=== PATIENT | male | born 1965 | race Caucasian/White ===

== ENCOUNTER → 2018-01-12 13:04 | Outpatient (CLI) | payer BC, SELFPAY ==
--- NOTE | 2018-01-12 13:19 | MRI_ITS ---
STUDY: MRI LEFT SHOULDER REASON FOR EXAM: Left shoulder pain for 6 months, injury. TECHNIQUE: Standardized fat and water weighted pulse sequences were obtained in all 3 orthogonal planes. COMPARISON: None. FINDINGS: There is mild supraspinatus tendinosis (T2 coronal images 8-10) without discrete tendon tear. Normal infraspinatus tendon. Normal subscapularis tendon. Normal teres minor tendon. Normal supraspinatus muscle. Normal infraspinatus muscle. Normal subscapularis muscle. Normal teres minor muscle. Normal glenohumeral articulation. Normal humeral head and visualized proximal humerus. Normal biceps labral complex. Normal intracapsular long biceps tendon. There is a small volume of fluid in the bicipital tendon sheath (proton density axial images 14-18). Normal labrum. Normal capsulo- ligamentous complex. There is mild acromioclavicular arthrosis without substantial undersurface osteophytes (T2 sagittal image 5). There is a Type II morphology (curved), with a neutral orientation. There is a very small volume of subacromial-subdeltoid bursal fluid (proton-density axial images 10-12). Normal visualized coracohumeral and coracoacromial ligaments. Normal deltoid muscle. Normal trapezius muscle. MRI/Upper Ext Joint Only(Routine) IMPRESSION: Mild supraspinatus tendinosis without demonstrated rotator cuff tear. Mild bicipital tenosynovitis. Mild acromioclavicular arthrosis. Very mild subacromial-subdeltoid bursitis. Electronically Signed: Philip Porras MD at 14:31 EST Tel , Service support ,
== END ==
DX: M25.512 Pain in left shoulder (principal)
CPT/HCPCS: 73221

== ENCOUNTER → 2020-02-03 07:14 | Outpatient (CLI) | payer OTHER, SELFPAY ==
[2020-02-03 10:23] LABS: Anion Gap 7 (5-15); BUN 14 mg/dL (7-18); BUN/Creat Ratio 11.7 RATIO (10-20); Calcium,Total 8.7 mg/dL (8.5-10.1); Chloride 104 mmol/L (98-107); EST Glomerular Filtration Rate 66 mL/min (>60); Est Glom Filt Rate - Afr Amer 80 mL/min (>60); Glucose 88 mg/dL (74-106); Potassium 3.9 mmol/L (3.5-5.1); Sodium Level 139 mmol/L (136-145)
== END ==
DX: I10 Essential (primary) hypertension (principal)
CPT/HCPCS: 36415; 80048

== ENCOUNTER → 2020-05-02 07:16 | Outpatient (CLI) | payer OTHER, SELFPAY ==
[2020-05-02 10:25] LABS: Absolute Lymphocyte Count 1.69 X10^3/uL (0.83-4.51); Absolute Neutrophil Count 3.3 X10^3/uL (2.0-7.7); Basophil# 0.06 X10^3/uL; Eosinophils% 3.5 % (0-5); Hematocrit 47.3 % (40-54); Hemoglobin 15.5 g/dL (13.0-16.5); Lymphocyte # 1.69 X10^3/ul (4.0); Lymphocyte % 29.2 % (19-41); Mean Corp Hgb Conc 32.8 g/dL (32-36); Mean Corpuscular Hgb 29.5 pg (27.0-32.0); Mean Corpuscular Volume 90.1 fL (80-94); Mean Platelet Vol. 10.4 fl (6.2-12.0); Monocyte# 0.51 X10^3/uL; Monocyte% 8.8 % (0-10); NRBC Flagged by Analyzer 0 % (0-5); Neutrophil # 3.32 X10^3/uL (2.7-7.7); Neutrophil % 57.3 % (47-70); Platelet Count 213 K/mm3 (150-450); RBC Distribution Width CV 13.2 % (11.6-14.6); RBC Distribution Width SD 43.3 fl (35.1-43.9); Red Blood Count 5.25 M/mm3 (4.6-6.2); White Blood Count 5.8 K/mm3 (4.4-11.0)
[2020-05-02 10:36] LABS: Color, Urine Yellow (Yellow); Glucose, Dipstick Normal (Normal); Ketone-Dipstick Negative (Negative); Leukocyte Esterase-Dipstick Negative /ul (Negative); Nitrite-Dipstick Negative (Negative); Occult Blood-Urine Negative /ul (Negative); Protein-Dipstick Negative (Negative); Specific Gravity, Urine 1.025 (1.002-1.030); Urine Bilirubin Dipstick Negative (Negative); Urine Clarity Clear (Clear); Urine Urobilinogen Normal (Normal)
[2020-05-02 10:40] LABS: ALB/GLOB Ratio 0.9 RATIO (0.9-2.4); AST(SGOT) 17 U/L (15-37); Alanine Aminotransfer ALT/SGPT 28 U/L (16-61); Albumin, Serum 3.4 g/dL (3.2-5.0); Alkaline Phosphatase 85 U/L (45-117); Anion Gap 7 (5-15); BUN 19 mg/dL (7-18); BUN/Creat Ratio 16.5 RATIO (10-20); Calcium,Total 8.6 mg/dL (8.5-10.1); Chloride 109 mmol/L (98-107); Cholesterol 201 mg/dL (200); Creatinine, Serum 1.15 mg/dL (0.70-1.30); EST Glomerular Filtration Rate 70 mL/min (>60); Est Glom Filt Rate - Afr Amer 84 mL/min (>60); Globulin 3.8 g/dL (2.2-4.2); Glucose 101 mg/dL (74-106); High Density Lipoprotein 26 mg/dL; PSA,Total - Annual Screen 0.43 ng/mL (0.00-4.00); Potassium 4.1 mmol/L (3.5-5.1); Protein, Total 7.2 g/dL (6.4-8.2); Sodium Level 143 mmol/L (136-145); Triglycerides 275 mg/dL; Very Low Density Lipoprotein 55 mg/dL (5-40)
== END ==
PROVIDERS: Referring Provider Family Medicine; Visit Provider Family Medicine
DX: Z00.00 Encounter for general adult medical examination without abnormal findings (principal); I10 Essential (primary) hypertension; E78.00 Pure hypercholesterolemia, unspecified; D50.9 Iron deficiency anemia, unspecified; Z12.5 Encounter for screening for malignant neoplasm of prostate
CPT/HCPCS: 36415; 80053; 80061; 81002; 84153; 85025; G0103

== ENCOUNTER → 2022-04-25 | Outpatient (CLI) | payer BC, SELFPAY ==
[2022-04-25 10:08] LABS: Absolute Lymphocyte Count 1.35 X10^3/uL (0.83-4.51); Absolute Neutrophil Count 4.4 X10^3/uL (2.0-7.7); Basophil# 0.07 X10^3/uL; Eosinophil# 0.14 X10^3/uL; Eosinophils% 2.1 % (0-5); Hematocrit 47.7 % (40-54); Hemoglobin 15.8 g/dL (13.0-16.5); Lymphocyte # 1.35 X10^3/ul (0.83-4.51); Lymphocyte % 20.1 % (19-41); Mean Corp Hgb Conc 33.1 g/dL (32-36); Mean Corpuscular Hgb 28.7 pg (27.0-32.0); Mean Corpuscular Volume 86.7 fL (80-94); Mean Platelet Vol. 10.3 fl (6.2-12.0); Monocyte# 0.69 X10^3/uL; Monocyte% 10.3 % (0-10); NRBC Flagged by Analyzer 0 % (0-5); Neutrophil # 4.43 X10^3/uL (2.7-7.7); Neutrophil % 66.2 % (47-70); Platelet Count 188 K/mm3 (150-450); RBC Distribution Width CV 13.3 % (11.6-14.6); RBC Distribution Width SD 41.9 fl (35.1-43.9); White Blood Count 6.7 K/mm3 (4.4-11.0)
[2022-04-25 10:34] LABS: ALB/GLOB Ratio 0.9 RATIO (0.9-2.4); AST(SGOT) 15 U/L (15-37); Alanine Aminotransfer ALT/SGPT 25 U/L (16-61); Albumin, Serum 3.4 g/dL (3.2-5.0); Alkaline Phosphatase 91 U/L (45-117); Anion Gap 6 (5-15); BUN 16 mg/dL (7-18); BUN/Creat Ratio 14.2 RATIO (10-20); Calcium,Total 8.4 mg/dL (8.5-10.1); Chloride 106 mmol/L (98-107); Cholesterol 182 mg/dL (200); Creatinine, Serum 1.13 mg/dL (0.70-1.30); EST Glomerular Filtration Rate 71 mL/min (>60); Est Glom Filt Rate - Afr Amer 85 mL/min (>60); Globulin 3.9 g/dL (2.2-4.2); Glucose 106 mg/dL (74-106); High Density Lipoprotein 27 mg/dL; Iron 53 ug/dL (65-175); PSA,Total - Annual Screen 0.71 ng/mL (0.00-4.00); Potassium 4.3 mmol/L (3.5-5.1); Protein, Total 7.3 g/dL (6.4-8.2); Sodium Level 138 mmol/L (136-145); Triglycerides 301 mg/dL; Very Low Density Lipoprotein 60 mg/dL (5-40)
== END | disposition home or self-care (01) ==
PROVIDERS: Referring Provider Family Medicine; Visit Provider Family Medicine
DX: Z00.00 Encounter for general adult medical examination without abnormal findings (principal); E78.00 Pure hypercholesterolemia, unspecified; I10 Essential (primary) hypertension; D50.9 Iron deficiency anemia, unspecified; Z12.5 Encounter for screening for malignant neoplasm of prostate
CPT/HCPCS: 36415; 80053; 80061; 83540; 84153; 85025; G0103

== ENCOUNTER 2023-02-28 20:25 | Emergency (ER) | payer OTHER, SELFPAY ==
[2023-02-28 20:27] VITALS: BP 162/91; PULSE 71; RESP 18; TEMP 35.5; O2SAT 95
--- NOTE | 2023-02-28 22:25 | ED.VIS.LOWEX ---
HPI History of Present Illness Chief Complaint: Edema Informant: patient and spouse/S.O. Narrative Narrative: Patient states he was getting into his truck and he hyperextended his left knee about 2 weeks ago. It has been a little sore since then he is able to walk on it. Couple days after that his left calf started hurting. It has all progressively gotten worse despite resting and sitting in a chair for couple days, and has developed swelling all the way down to the ankle now. 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 They are concerned about the possibility of a DVT. He has had no chest pain, shortness of breath, syncope or other systemic symptoms. No fevers or chills. He is post to be on aspirin and Plavix but for some reason the pharmacy would not fill it for the last couple months, this was after he was admitted to the hospital with high troponins and an elevated D-dimer but negative/normal heart catheterization, according to the spouse. [facility] Medical History (Updated 03/01/23 @ 00:[address] Polo South MD) NSTEMI (non-ST elevated myocardial infarction) Home Medications enoxaparin 120 mg/0.8 mL subcutaneous syringe (Lovenox) 125 mg (0.8333 mL) subcut Q12H #3 mL 03/01/23 [Rx Last Taken Unknown] Allergy/AdvReac Type Severity Reaction Status Date / Time bee venom protein (honey bee) Allergy Anaphylaxis Verified 02/28/23 20:27 [bee stings] Social History Smoking Status: Never smoker [facility] ED Constitutional Constitutional ED: Denies chills or fever(s) Cardiovascular Cardiovascular: Denies chest pain, palpitations or syncope Respiratory/Chest Respiratory/Chest: Denies dyspnea or dyspnea on exertion Musculoskeletal Musculoskeletal: Reports extremity pain and other Details: LLE swelling ; Denies neck pain Integumentary Denies Abrasions, rash or wounds Neurologic Neurologic: Denies paresthesias or weakness EXAM Physical Exam Const Vital Signs: 02/28/23 20:27 Temperature 96 F L Temperature Source Temporal Pulse Rate 71 Respiratory Rate 18 Blood Pressure 162/91 H Blood Pressure Mean 114 Pulse Ox 95 Oxygen Delivery Method Room Air Positive well nourished and well developed General Appearance ED: well developed and NAD Neck full ROM and supple Extremity Extremity Narrative: Edematous left lower extremity from the knee where there is an effusion down to the ankle. No edema on the right. Some proximal calf tenderness but no palpable cords or signs of cellulitis. The knee is not hot. Limited range of motion of the knee due to pain, including extension and flexion, he is able to extend, all ligaments are stable with short endpoints and no significant pain on stressing but I am not able to bend him further than about 25 or 30 degrees to get a good torque on the ACL and PCL. Full range of motion of the hip and ankle without difficulty. All compartments soft and nondistended. Good pulses distally. Neuro oriented x3, no focal motor deficits and no sensory deficits noted Sensorium / Orientation: alert Psych mental status grossly normal and thought process normal Skin no wounds Rashes: no rashes MDM MDM MDM Narrative Medical decision making narrative: The patient presents on Thursday night when vascular ultrasound to evaluate for DVT and Martin's cyst which is also in the differential here, is not available. wants a D-dimer that is reasonable, so that it was obtained. It is elevated. This is nonspecific, however it does not allow us to rule out a DVT without an ultrasound which is not obtainable at this time. Therefore will be ordered as an outpatient, however tomorrow is Easter Thursday, I am checking but he may not be able to get until Thursday morning. 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 He is given a 12-hour coverage here, he actually weighs too much to give him 24-hour coverage anyway so I am fine with that. Also given an Osman wrap and referral to orthopedics for his knee. Lab Data Attestation: I reviewed the patient's lab results. Labs: Laboratory Results - last 24 hr 02/28/23 22:47 D-Dimer Quant (PE/DVT) 2.19 H* Radiography Diagnostic Testing: Clinical Impression(s) from Imaging Studies Knee X-Ray 02/28/23 23:40 IMPRESSION: No evidence of fracture. Small joint effusion. Degenerative changes. Electronically Signed: Radha Duff MD at 0:02 EDT , 4 views interpreted by myself no acute fracture, radiology in agreement Discharge Plan Triage Chief Complaint: Edema ED Provider: Polo South Dx/Rx/DC Orders Clinical Impression: Hyperextension injury of left knee, Pain of left calf Instructions: ED Knee Sprain, ED Peripheral Edema, Unilateral Prescriptions: New enoxaparin [Lovenox] 120 mg/0.8 mL syringe 125 mg subcut Q12H Qty: 3 0RF Primary Care Provider: Jose Coe Referrals: Eric Berumen DO [Med Staff - Active Staff] - 5-7 Days Jose Coe [[facility]] - Activity Restrictions/Additional Instructions: Lovenox in hospital given approximately 0030 morning of 03/01; further doses are approximately every 12 hours. See attached information regarding getting outpatient ultrasound for DVT screening, which is not going to be available Easter Thursday. Disposition Disposition: Home, Self Care
[2023-02-28 22:49] VITALS: BMI 40.4
[2023-02-28 23:24] LABS: D-Dimer Quantitative (DVT/PE) 2.19 FEU/ug/m (0.27-0.49)
--- NOTE | 2023-02-28 23:40 | RAD_ITS ---
INDICATION: injury, pain, swelling EXAMINATION/TECHNIQUE: X-RAY - LEFT XR Knee Complete 4 Views or More 4 VIEWS COMPARISON: None. FINDINGS: BONES: No fracture demonstrated. Mild degenerative changes mainly at the patellofemoral joint space. JOINTS: No dislocation. SOFT TISSUES: Small joint effusion. RAD/Knee 4 or More Views IMPRESSION: No evidence of fracture. Small joint effusion. Degenerative changes. Electronically Signed: Radha Duff MD at 0:02 EDT ,
[2023-03-01 00:30] VITALS: BP 127/66; PULSE 68; RESP 18; O2SAT 96
[2023-03-01] MEDS: Enoxaparin 120 MG/0.8 ML Syringe SC (00:32)
[2023-03-01 00:49] VITALS: BP 127/66; PULSE 68; RESP 18; O2SAT 96
== END 2023-03-01 00:51 | disposition home or self-care (01) ==
PROVIDERS: Emergency Provider Emergency Medicine; PCP Family Medicine; Visit Provider Emergency Medicine
DX: R60.9 Edema, unspecified (principal); S83.92XA Sprain of unspecified site of left knee, initial encounter; M79.662 Pain in left lower leg; X58.XXXA Exposure to other specified factors, initial encounter; Y92.812 Truck as the place of occurrence of the external cause
CPT/HCPCS: 73564; 85379; 96372; 99282

== ENCOUNTER → 2023-03-01 | Outpatient (CLI) | payer OTHER, SELFPAY ==
--- NOTE | 2023-03-01 11:02 | VDLE_ITS ---
Reason For Study: Swelling RIGHT LEFT CFV is compressible, spontaneous, phasic, GSV is normal. competent and demonstrates normal CFV is compressible, spontaneous, phasic, augmentation. competent, and demonstrates normal Procedure augmentation. This is a venous duplex using B-mode, color FV is compressible, spontaneous, phasic, flow and spectral Doppler. competent and demonstrates normal Exam performed in department. augmentation. A preliminary report was called and/or faxed POP V is compressible, spontaneous, phasic, to ED. competent and demonstrates normal augmentation. T/P Trunk is compressible. PTV is compressible. LT PerV is compressible. Heterogeneous, non vascular structure noted Lt Pop Fossa measuring 3.79cm x 2.13cm Anechoic, non vascular structure noted Lt Pop Fossa and extending into the Lt prox calf measuring 1.44cm x 3.78cm (Pop Fossa) and 1.21cm x 3.30cm (prox calf). VL/Venous Duplex US, Unilateral Interpretation Summary There is no evidence of left lower extremity deep vein thrombosis. Left great s aphenous vein appears patent and compressible segmentally. Left popliteal fossa 1.44 x 3.78 cm non-va scular structure consistent with a Martin's cyst. Clinical correlation would be appropriate Secondary non-vascular structure with some internal echoes extending to the lef t proximal calf 1.21 x 3.3 cm. Possible extension of the first structure. Additional imaging if elías cated Normal flow patterns right common femoral vein Ordering Physician: Polo South Referring Physician: Jose Coe Performed By: Doreen Villa, [place], RVT
== END | disposition home or self-care (01) ==
LOC: CVS 11:02
PROVIDERS: PCP Family Medicine; Visit Provider Emergency Medicine
DX: M79.89 Other specified soft tissue disorders (principal)
CPT/HCPCS: 93971